=== PATIENT | female | born 1945 | race Caucasian/White ===

== ENCOUNTER 2017-04-28 17:37 | Inpatient (IN) | payer OTHER ==
[~2017-04-28] VITALS: Wt 75.3 kg
--- NOTE | ~2017-04-28 | WRIGHTHP ---
[place], [place] PATIENT HISTORY AND PHYSICAL EXAM NAME: HERB MORGAN [facility] #: [id number] UNIT #: [id number] ROOM: 314 DOCTOR: KEMAR ASHTON BIRTHDATE: [birth year] DOS: 04/29/2017 INITIAL PSYCHIATRIC EVALUATION HISTORY OF PRESENT ILLNESS: This is a 71-year-old female presenting to the Emergency Room stating that she has increased anxiety, feeling overwhelmed, like she cannot go on, has thoughts of suicide but no plan. She has not taking her medications, but does not feel like they are helping, increased stress in her life, children are fighting, believes her son-in-law is stealing from her, poor sleep, worsening depression, severe pain. PAST MEDICAL HISTORY: Looks like chronic pain, depression, anxiety. DIAGNOSES: Suicidal ideation secondary to major depression, severe. MENTAL STATUS: She is alert and oriented to person, place, and time. Mood, overwhelmingly depressed. Affect flat, blunted in a constricted range. No overt signs of auditory or visual hallucinations, delusions, paranoia, amadou or hypomania. The patient does still have thoughts of suicide, no plan, just overwhelmed with life. Overall, memory appears to be intact. PLAN: She currently is on Ambien and Prozac. I am stopping the Ambien, I am stopping the Prozac. I am going to start her on Cymbalta 30 mg at bedtime. This will help with depression, anxiety and her chronic pain. I am going to titrate this up quickly and I discussed this with the patient. She does not feel that the Prozac has been helping anymore. I did start her on Remeron 15 mg at bedtime to augment the effectiveness of the Cymbalta. I am also trying to get her away from Ambien. I am fearful that the Ambien is no longer working. It is not getting her into deep restorative sleep, so I am hoping that the Remeron will help with that. I am going to go ahead and add a little Vistaril right now 50 mg twice a day for her anxiety and stress and also to help get her to some sleep. I think if she sleeps, she will be able to have better coping mechanisms at this point in time. She is very guarded. My plan with nursing discussed and with the patient is I need her to get some sleep, lets get her opening up a little bit more dealing with issues and we can kind of go from there. The patient was agreeable. Initially, she wanted to leave AMA, but I think she is feeling a little bit better this morning, even though she is quite tired because she had a very eventful day yesterday with family issues, then the Emergency Room and then coming to the unit late at night. So, we will hopefully have a little calmer day for her today, help her catch her breath and then really start working on individual and white milieu therapy. [place], [place] PATIENT HISTORY AND PHYSICAL EXAM NAME: HERB MORGAN UNIT #: [id number] ROOM: [facility] DOCTOR: KEMAR ASHTON BIRTHDATE: [birth year] STEFANIE ASHTON CNP CM:HISPHYS:PATIENT HISTORY AND PHYSICAL EXAMINATION [phone] KEMAR ASHTON 04/29/17829 interface
--- NOTE | ~2017-04-28 | PR ---
[place], [place] PROGRESS NOTE NAME: HERB MORGAN [facility] #: [id number] UNIT #: [id number] ROOM: 314 DOCTOR: KEMAR ASHTON STEFANIE BIRTHDATE: [birth year] DOS: 04/30/2017 CHIEF COMPLAINT: "Good morning." SUMMARY OF VISIT: The patient was interviewed in her room where she was lying in bed. She initially attempted to turnover and grimace in pain and states that she is in excruciating pain from her lower back that radiates down her right buttocks and all the way down her leg. Nursing noted that to their surprise she was out of her room, quite a bit yesterday engaged in some group therapy. We did have trouble getting a regular schedule pain meds for her, but at least it seems now that they are onboard. MENTAL STATUS: She is alert and oriented to person, place and time. Mood is still depressed. She is overwhelmed with her pain issues. I think it is predominant and again I do not know if her depression was there and then she started having chronic pain or if the chronic pain was there and she became overwhelmed by and became depressed. No overt signs of auditory or visual hallucinations, delusions, paranoia, amadou or hypomania. No more suicidal thoughts at this point in time. Memory overall appears to be intact. PLAN: I am going to go ahead and increase her Cymbalta to 60 I am going to aggressively titrate this up. I am hoping that this helps with her depression and anxiety, but also kind of kicks in and helps with some of those chronic pain issues. So, I am going to change it to 60 mg at bedtime. I am going to give her more Vistaril instead of twice a day I am going to increase it to 3 times a day. She gets so scared and agitated, anxious when the pain starts coming in and she just cannot get over that. We continue with the Remeron right now 15 mg at bedtime, it is augmenting the effectiveness of the Cymbalta helping with the depression, but also allowing her to sleep. She had been on Ambien for such a long time that I think she needs some kind of sleep aid and help with her depression. We will continue to try to engage in individual and white milieu therapy. The plan is to eventually discharge once psychologically stable. STEFANIE ASHTON CNP CM:KATIE [id number] KEMAR ASHTON 04/30/17 141 interface
--- NOTE | ~2017-04-28 | DS ---
[place], [place] DISCHARGE SUMMARY [id number] UN[facility] #: [id number] ROOM: 314 DOCTOR: LYNNE MCDONOUGH BIRTHDATE: [birth year] DOS: CHIEF COMPLAINT: "I would like to go home today." HISTORY OF PRESENT ILLNESS: She is a 71-year-old female who presented to the Emergency Room with increasing anxiety, said that she was feeling overwhelmed and had thoughts of suicide, but no plan. She reports that she had a lot of family problems that were going on and chronic pain issues and that was what led her to come to the Emergency Room. She was subsequently admitted to the Behavioral Health Unit for med stabilization and group therapy. SUMMARY OF THE HOSPITAL COURSE: She was treated for her depression and for chronic pain. Her Cymbalta was titrated up. Her Vistaril was titrated to 3 times a day for anxiety. She has followup at a pain clinic in [place] for chronic restless leg syndrome and she will continue to follow up there. DIAGNOSIS: Acute psychosis, which is now stable. DISPOSITION: She will discharge home with her . Her scripts have been electronically sent to her pharmacy in [place] for her Cymbalta, Remeron and Atarax to [facility] and her mood at discharge is euthymic and she is psychologically stable. Lynne Mcdonough NP CM:DISCHARG [id number] LYNNE MCDONOUGH 05/01/17 1159 interface
[2017-04-28 17:49] VITALS: BP 158/70
[2017-04-28] MEDS ORDERED: ZOLPIDEM TART10 MG PO (17:49)
[2017-04-28] MEDS ORDERED: GABAPENTIN400 MG PO (17:50)
[2017-04-28] MEDS ORDERED: ROPINIROLE HYDRO2 M2 PO (17:50)
[2017-04-28] MEDS ORDERED: FLUOXETINE HCL40 MG PO (17:50)
[2017-04-28] MEDS ORDERED: HYDROCODONE BIT1 T20 PO (17:50)
[2017-04-28 18:25] LABS: BASO # 0.1 10*3/uL (0.0-0.1); BASO % 0.9 % (0.0-1.0); EOS # 0.3 10*3/uL (0.0-0.4); HEMATOCRIT 39.8 % (37.0-47.0); HEMOGLOBIN 12.8 g/dl (12.0-16.0); IG # 0.1 10*3/uL (0.0-0.1); LYMPH # 2.8 10*3/uL (1.3-4.4); LYMPH % 31.8 % (27.0-41.0); MEAN CORPUSCULAR HGB 29.9 pg (27.0-31.0); MEAN CORPUSCULAR HGB CONC 32.2 g/dl (33.0-37.0); MEAN PLATELET VOLUME 8.9 fl (9.6-12.3); MONO # 0.4 10*3/uL (0.1-1.0); MONO % 4.9 % (3.0-9.0); NEUT # 5.2 10*3/uL (2.3-7.9); NEUT % 58.8 % (47.0-73.0); PLATELET COUNT AUTOMATED 448 10*3/uL (130-400); RED BLOOD COUNT 4.28 10*6/uL (4.10-5.10); RED CELL DISTRI WIDTH 12.9 % (0-14.5); WHITE BLOOD COUNT 8.9 10*3/uL (4.8-10.8)
[2017-04-28 18:42] LABS: ALBUMIN 3.3 gm/dl (3.1-4.5); ALKALINE PHOSPHATASE 82 U/L (45-117); BILIRUBIN, TOTAL 0.2 mg/dl (0.2-1.0); BUN 11 mg/dl (7-24); CARBON DIOXIDE 27 mmol/L (21-32); CHLORIDE 102 mmol/L (98-107); EST GLOM FILT AFRICAN AMERICAN > 60 ml/min; GLUCOSE 141 mg/dL (65-99); SGOT/AST 14 IU/L (3-35); SGPT/ALT 12 U/L (12-78); SODIUM 139 mmol/L (136-145); TOTAL PROTEIN 7.1 gm/dL (6.4-8.2)
[2017-04-28 18:47] LABS: BILIRUBIN NEGATIVE (NEGATIVE); BLOOD NEGATIVE (NEGATIVE); CLARITY CLEAR (CLEAR); COLOR YELLOW (YELLOW); GLUCOSE NEGATIVE (NEGATIVE); KETONE NEGATIVE (NEGATIVE); LEUKO ESTERASE TRACE (NEGATIVE); NITRITE NEGATIVE (NEGATIVE); PH 6.5 (5.0-9.0); PROTEIN NEGATIVE (NEGATIVE); SPECIFIC GRAVITY <= 1.005 (1.005-1.030); UROBILINOGEN 0.2 E.U./dl (0.2-1.0)
[2017-04-28 18:50] LABS: THYROID STIM HORMONE (HS) 0.501 uIU/ml (0.358-4.75)
[2017-04-28 18:53] LABS: BACTERIA TRACE; RBC 0-2 rbc/hpf (0-2); WBC 0-2 wbc/hpf (0-5)
[2017-04-28 18:54] LABS: URINE REFLEX COMMENT YES (NO)
[2017-04-28 18:56] LABS: URINE AMPHETAMINES < 1000 (1000ng/ml); URINE BARBITURATES < 200 (200ng/ml); URINE COCAINE < 300 (300ng/ml)
[2017-04-28 21:50] VITALS: BP 157/54
[2017-04-28 22:30] VITALS: BP 158/70
[2017-04-29 07:26] LABS: CHOLESTEROL 191 mg/dL (<200); HDL CHOLESTEROL 49 mg/dl (40-60); LDL CHOLESTEROL 113 mg/dL (9-159); TRIGLYCERIDES 146 mg/dl (<150); VLDL CHOLESTEROL 29 mg/dL (6-40)
[2017-04-29 07:48] LABS: FOLIC ACID 5.6 ng/mL (>5.38); VITAMIN D, 25-HYDROXY 16.9 ng/mL (30-100)
[2017-04-29 08:23] VITALS: BP 129/54
[2017-04-29 19:54] VITALS: BP 143/56
[2017-04-29 20:43] VITALS: BP 143/56
[2017-04-30 08:00] VITALS: BP 134/54
[2017-04-30 19:43] VITALS: BP 140/66
[2017-05-01 07:47] VITALS: BP 138/62
[2017-05-01] MEDS ORDERED: DULOXETINE HCL60 MG PO (09:03)
[2017-05-01] MEDS ORDERED: ATARAX,VISTARIL50 MG PO (09:03)
[2017-05-01] MEDS ORDERED: MIRTAZAPINE15 M2 PO (09:03)
[2017-05-01] MEDS ORDERED: SINEMET 25-1001 TA1 PO (10:20)
== END 2017-05-01 11:50 | disposition home or self-care (01) | DRG 885 ==
LOC: ED 17:37 → 3N 20:10
PROVIDERS: Nurse Practitioner Adult Health; Nurse Practitioner Family
DX: F33.2 Major depressive disorder, recurrent severe without psychotic features (principal); G62.9 Polyneuropathy, unspecified; F23 Brief psychotic disorder; G89.29 Other chronic pain; M54.41 Lumbago with sciatica, right side; M19.90 Unspecified osteoarthritis, unspecified site; E55.9 Vitamin D deficiency, unspecified; G25.81 Restless legs syndrome; Z90.710 Acquired absence of both cervix and uterus; Z90.49 Acquired absence of other specified parts of digestive tract; Z87.891 Personal history of nicotine dependence; Z80.3 Family history of malignant neoplasm of breast; Z82.0 Family history of epilepsy and other diseases of the nervous system